=== PATIENT | female | born 1995 | race Caucasian/White ===

== ENCOUNTER 2018-01-01 12:30 | Inpatient (IN) | payer SELFPAY ==
[2018-01-01 12:52] VITALS: BMI 33.8
[2018-01-01] MEDS: Lactated Ringers 1,000 ML 50 ML IV ×2 (13:15→18:01)
[2018-01-01 13:39] LABS: Hematocrit 36.7 % (37-47); Hemoglobin 12.2 g/dl (12.0-15.0); Mean Corp Hgb Conc 33.2 g/gl (32-36); Mean Corpuscular Hgb 29.9 pg (27.0-32.0); Mean Platelet Vol. 10.6 fl (6.2-12.0); Platelet Count 193 K/mm3 (150-450); RBC Distribution Width CV 12.8 % (11.6-14.6); RBC Distribution Width SD 41.6 fl (35.1-43.9); Red Blood Count 4.08 M/mm3 (4.2-5.4); Scan Indicated on CBC? Y/N NO; White Blood Count 12.1 K/mm3 (4.4-11.0)
[2018-01-01] MEDS: Oxytocin 30 units/NS 500 ml 30 UNITS/500 ML IV.SOLN IV (13:50)
--- NOTE | 2018-01-01 17:14 | PCM.HP.OB ---
- Problem List (1) SROM (spontaneous rupture of membranes) Status: Acute History Date of Admission: 01/01/18 Final CARMEN: 01/12/18 Final CARMEN Source: US >20 weeks Gestational age: 38 Weeks and 3 Days History of this : This is a 22 year-old, , at 38 weeks gestational age who presented to the office with SROM for clear fluid at home. +Irregular ctx's. No VB. Good FM. has been uncomplicated. Late to care with 20 wk dating US. Allergies No Known Allergies Allergy (Verified 01/01/18 12:50) Home Medications: Home Medications Vits [Prenatabs FA] 1 tablet PO DAILY 01/01/18 Smoking Status: Never smoker Alcohol: None Number of Fetus(es): 1 Heart Tracin/mod mario alberto/+accels/no decels. Category 1 TOCO Analysis: Ctx q 4-5 min History Past Pregnancies: Past Pregnancies Delivery Date Name GA/Weeks Outcome Route Weight Gender Labor Length Anesthesia Delivery Location Provider FOB Labs: GBS pos, 1 hr GTT 113, Hep B neg, RI, Rh pos, HIV NR, Syphilis NR Expected Infant Delivery Method: Spontaneous Vaginal Review of Systems Gynecological: Reports: - - +SROM for clear fluid. No vb, regular ctx's. Good FM Physical Exam General: Alert, Oriented x3 HEENT: Atraumatic Lungs: - - No increased resp effort Abdomen: Soft, Non Tender, Gravid Extremities:: No edema Neurological: Neuro grossly intact FAMILY EDUCATOR: Normal external genitalia Estimated gestational size: Appropriate for gestational size Presentation: Cephalic Cervix Dilation (cm): 1 Station: -2 Effacement (%): 50 Assessment/Plan All Active Problems SROM (spontaneous rupture of membranes) (Acute) This is a 22 year-old, G1, P0, at 38 weeks gestational age who is admitted with SROM for clear fluid. - Cvx 1/t/h, vertex - Routine intrapartum care - Epidural prn - PCN for GBS positive - Start pitocin - Hx significant for late care
[2018-01-02] MEDS: Lactated Ringers 1,000 ML 50 ML IV ×3 (01:09→10:10)
--- NOTE | 2018-01-02 07:16 | PCM.PN.BLA ---
Progress Note At bedside to check pt. S/p epidural. Feeling more comfortable. Cvx now 6/80/-1. FHT 145/mod mario alberto/+accels/+occasional variable and early decels. Continue pit and PCN.
--- NOTE | 2018-01-02 08:36 | PN_ITS ---
Progress Note At bedside to check patient. Cvx 9/90/-1, anterior lip and some cervix on pt's left side. FHT 145/mod mario alberto/no accels/+early decels. [place] q 3-4 min. Continue with position changes, pit and PCN at this time.
--- NOTE | 2018-01-02 10:51 | PCM.PN.OB ---
Patient Problems: Active and Suspected Problems SROM (spontaneous rupture of membranes) (Acute) Subjective: Doing well, laying comfortable in bed with epidural. Late heart decelerations to 90's, pitocin off and positional changes. Pushed for 40 minutes and then stopped due to heart decelerations. Objective: FHT 120s, minimal variability, accels, early decel. Previous episodic late decelerations, recovered TOCO: irregular contractions, mild to palpation, pitocin off Cervix: Complete/0 station/ROP - Physical Exam Weight: 190 lb 14.725 oz Body Mass Index (BMI) 33.8 Intake and Output for Last 24 Hours 12/31/17 01/01/18 01/02/18 23:59 23:59 23:59 Intake Total 1598 / 1598 2850 / 2850 Output Total 1250 / 1250 1050 / 1050 Balance 348 / 348 1800 / 1800 Laboratory Tests Past 24 Hrs 01/01/18 01/01/18 13:15 13:15 WBC 12.1 H RBC 4.08 L Hgb 12.2 Hct 36.7 L MCV 90.0 MCH 29.9 MCHC 33.2 RDW 12.8 RDW Differential 41.6 Plt Count 193 MPV 10.6 Blood Type A POSITIVE Antibody Screen NEGATIVE Medical Necessity - Tobacco Use Smoking Status: Never smoker Assessment/Plan All Active Problems SROM (spontaneous rupture of membranes) (Acute) A:Active Labor, second stage Category 2 P: 1) Complete, ROP. Positional changes as tolerated. 2) Reviewed plan of care with . Will labor down. No pitocin for 40 minutes, will restart at 2mu's. 3) Epidural decreased by 1/2 by anesthesia. 4) Labor down at this time until contractions become regular then will begin pushing efforts again.
--- NOTE | 2018-01-02 12:35 | PCM.PN.OB ---
Patient Problems: Active and Suspected Problems SROM (spontaneous rupture of membranes) (Acute) Subjective: Sitting up in bed, feeling more pressure, continuous in back. Nauseated and emesis x1 Objective: FHT 120, moderate variability, accels. Variable decel with positional change. Category 2 TOCO:q3-5 minutes, moderate to palpation Pitocin at 8 mu's Cervix: complete/0 station, unable to determine position, vertex. - Physical Exam Weight: 190 lb 14.725 oz Body Mass Index (BMI) 33.8 Intake and Output for Last 24 Hours 12/31/17 01/01/18 01/02/18 23:59 23:59 23:59 Intake Total 1598 / 1598 2850 / 2850 Output Total 1250 / 1250 1050 / 1050 Balance 348 / 348 1800 / 1800 Laboratory Tests Past 24 Hrs 01/01/18 01/01/18 13:15 13:15 WBC 12.1 H RBC 4.08 L Hgb 12.2 Hct 36.7 L MCV 90.0 MCH 29.9 MCHC 33.2 RDW 12.8 RDW Differential 41.6 Plt Count 193 MPV 10.6 Blood Type A POSITIVE Antibody Screen NEGATIVE Medical Necessity - Tobacco Use Smoking Status: Never smoker Assessment/Plan All Active Problems SROM (spontaneous rupture of membranes) (Acute) A:Active Labor Category 2 P: 1) on unit, reviewed plan of care and waiting for more frequent contractions to start pushing efforts, agrees with plan. 2) Continue with active management at this time.
--- NOTE | 2018-01-02 13:28 | PCM.PN.OB ---
Patient Problems: Active and Suspected Problems SROM (spontaneous rupture of membranes) (Acute) Subjective: Epidural effective, feeling more pressure. Sitting up in bed, nausea resolved. Objective: FHT 120, moderate variability, accels, one late deceleration TOCO [id number], strong, Pitocin at 10mu's Cervix complete +1 to +2 station - Physical Exam Weight: 190 lb 14.725 oz Body Mass Index (BMI) 33.8 Intake and Output for Last 24 Hours 12/31/17 01/01/18 01/02/18 23:59 23:59 23:59 Intake Total 1598 / 1598 2850 / 2850 Output Total 1250 / 1250 1050 / 1050 Balance 348 / 348 1800 / 1800 Laboratory Tests Past 24 Hrs 01/01/18 01/01/18 13:15 13:15 WBC 12.1 H RBC 4.08 L Hgb 12.2 Hct 36.7 L MCV 90.0 MCH 29.9 MCHC 33.2 RDW 12.8 RDW Differential 41.6 Plt Count 193 MPV 10.6 Blood Type A POSITIVE Antibody Screen NEGATIVE Medical Necessity - Tobacco Use Smoking Status: Never smoker Assessment/Plan All Active Problems SROM (spontaneous rupture of membranes) (Acute) A:Active labor, progressing Category 2 heart tracing P: 1) Will begin pushing efforts . notified of patient status and plan.
--- NOTE | 2018-01-02 13:31 | PN.OBGYN_ITS ---
Patient Problems: Active and Suspected Problems SROM (spontaneous rupture of membranes) (Acute) Subjective: Epidural effective, feeling more pressure. Sitting up in bed, nausea resolved. Objective: FHT 120, moderate variability, accels, one late deceleration TOCO [id number], strong, Pitocin at 10mu's Cervix complete +1 to +2 station - Physical Exam Weight: 190 lb 14.725 oz Body Mass Index (BMI) 33.8 Intake and Output for Last 24 Hours 12/31/17 01/01/18 01/02/18 23:59 23:59 23:59 Intake Total 1598 / 1598 2850 / 2850 Output Total 1250 / 1250 1050 / 1050 Balance 348 / 348 1800 / 1800 Laboratory Tests Past 24 Hrs 01/01/18 01/01/18 13:15 13:15 WBC 12.1 H RBC 4.08 L Hgb 12.2 Hct 36.7 L MCV 90.0 MCH 29.9 MCHC 33.2 RDW 12.8 RDW Differential 41.6 Plt Count 193 MPV 10.6 Blood Type A POSITIVE Antibody Screen NEGATIVE Medical Necessity - Tobacco Use Smoking Status: Never smoker Assessment/Plan All Active Problems SROM (spontaneous rupture of membranes) (Acute) A:Active labor, progressing Category 2 heart tracing P: 1) Will begin pushing efforts . notified of patient status and plan.
--- NOTE | 2018-01-02 14:24 | PCM.PN.OB ---
Patient Problems: Active and Suspected Problems SROM (spontaneous rupture of membranes) (Acute) Subjective: Pushing with tug of war, minimal decent. Epidural effective Objective: FHT 130, minimal variabilityno accel, category 2. Prolonged decel in 90's. TOCO: every 4-5 minutes, strong Cervix: Complete, caput +2 with pushing, labial separation, minimal descent but slow progress. - Physical Exam Weight: 190 lb 14.725 oz Body Mass Index (BMI) 33.8 Intake and Output for Last 24 Hours 12/31/17 01/01/18 01/02/18 23:59 23:59 23:59 Intake Total 1598 / 1598 2850 / 2850 Output Total 1250 / 1250 1050 / 1050 Balance 348 / 348 1800 / 1800 Medical Necessity - Tobacco Use Smoking Status: Never smoker Assessment/Plan All Active Problems SROM (spontaneous rupture of membranes) (Acute) A: Active labor, second stage Category 2 FHT P: 1) notified of FHT and asked to come to L&D for evaluation. 2) Placed on side, pitocin off, O2 on via facemask.
[2018-01-02] MEDS: Oxytocin 30 units/NS 500 ml 30 UNITS/500 ML IV.SOLN 334 UNITS IV (15:48)
[2018-01-02] MEDS: Oxytocin 30 units/NS 500 ml 30 UNITS/500 ML IV.SOLN 167 UNITS IV (16:20)
--- NOTE | 2018-01-02 16:25 | OP.PCM_ITS ---
- Problem List (1) Vaginal delivery Status: Acute (2) Shoulder dystocia, delivered Status: Acute (3) Second degree perineal laceration Status: Acute Vaginal Delivery Maternal Presentation: Spontaneous Rupture of Membranes Method of Induction: Pitocin Medical Reason for Induction: Premature Rupture of Membranes Amniotic Membrane Rupture Type: Spontaneous Amniotic Fluid Description: Clear Final CARMEN: 01/12/18 Gestational age: 38 Weeks and 4 Days Date of Procedure: 01/02/18 Pre-Operative Diagnosis: PROM Post-Operative Diagnosis: Vaginal Delivery Surgery/ Procedure Performed: Spontaneous Vaginal Delivery Type of Anesthesia: Epidural Description of Procedure: After laboring down and awaiting for closer contraction frequency, attempted pushing efforts. Maternal efforts strong and progressing. called to unit for review of tracing and stayed during pushing efforts. Recovery of heart tones and good pushing efforts with progress. of viable male infant over 2nd degree perineal laceration and right labial laceration. APGARS 6 and 8 with weight pending. Head delivered with turtle sign noted and shoulders not forthcoming. Luh then suprapubic pressure applied. Compliance And Control Analyst called to room. Cord around neck, unable to reduce. Retrieval of posterior arm with posterior hand and elbow forth coming. Maternal pushing efforts poor. Attempting to retrieve rest of posterior arm and assist in delivery and instructed mother to push. stepped in to assist and infant forthcoming and delivered. Cord doubly clamped and taken by nursing staff to warmer. Infant stimulated, no further resuscitative measures, attended by nursing staff and . Cord gases obtained. Pitocin for active 3rd stage management. Infant placed skin to skin on maternal abdomen. Placenta delivered with maternal effort, intact, 3 vessel cord via mi, marginal cord insertion. Perineum inspected and revealed 2nd degree perineal laceration repaired under epidural analgesia with 3.0 vicryl and right labial laceration repaired with 3.0 vicryl. Well approximated and hemostasis achieved. Vaginal exam and clots removed. Fundus firm, EBL 300ml. Planning to breastfeed. Mom and baby stable, family bonding well. present for delivery. Presentation: Vertex Placental Delivery Description: Spontaneous Placenta Disposition: [facility] Cord Vessel Description: 3 Vessels Nuchal Cord Compression: Without compression Cord Gases drawn per routine: ABG, VBG Cord Entanglement: Around neck x 1, loose Estimated Blood Loss: 300 ml Infant A gender: Male (1 minute): 6 (5 minute): 8 Episiotomy Description: None Laceration: Perineal Extension/lac, 2nd degree Medications given after delivery: IV Pitocin
[2018-01-02] MEDS: Ibuprofen 600 MG Tablet PO (17:43)
[2018-01-02 20:30] VITALS: BP 117/73; PULSE 92; RESP 18; TEMP 36.5
[2018-01-03] VITALS: BP 115/76; PULSE 103; RESP 16; TEMP 36.8
[2018-01-03] MEDS: Ibuprofen 600 MG Tablet PO (03:31)
[2018-01-03 03:35] VITALS: BP 128/86; PULSE 98; RESP 18; TEMP 36.7
[2018-01-03 08:00] VITALS: BP 124/73; PULSE 87; RESP 16; TEMP 36.6; O2SAT 97
[2018-01-03] MEDS: Acetaminophen 500 MG Tablet 1000 MG PO (08:51)
--- NOTE | 2018-01-03 12:13 | PCM.PN.OB ---
Patient Problems: Active and Suspected Problems SROM (spontaneous rupture of membranes) (Acute) Vaginal delivery (Acute) Shoulder dystocia, delivered (Acute) Second degree perineal laceration (Acute) Subjective: Doing well per patient and nursing staff. Voiding and passing flatus. Denies any increased pain, vaginal bleeding or clots, chest pain, SOB or leg pain. Tylenol and Motrin effective for pain. , every 2-3 hrs. Planning D/C home tomorrow. Objective: Rubella Immune A positive GBS positive-treated during labor - Physical Exam General: Alert, Oriented x3 HEENT: Atraumatic, Normocephalic Lungs: Clear to auscultation, No rhonchi, No wheeze Cardiovascular: Regular rate, Regular Rhythm, No murmurs Abdomen: Bowel Sounds Present, Soft, - - Fundus firm 2 below U Extremities: No edema, - - Fede's negative Psych/Mental Status: Normal Affect, Appropriate Vital Signs Temp Pulse Resp BP Pulse Ox 97.8 F 87 16 124/73 H 97 01/03/18 08:00 01/03/18 08:00 01/03/18 08:00 01/03/18 08:00 01/03/18 08:00 Oxygen Delivery Method Room Air Weight: 190 lb 14.725 oz Body Mass Index (BMI) 33.8 Intake and Output for Last 24 Hours 01/01/18 01/02/18 01/03/18 23:59 23:59 23:59 Intake Total 1598 / 1598 4750 / 4750 Output Total 1250 / 1250 3300 / 3300 600 / 600 Balance 348 / 348 1450 / 1450 -600 / -600 Medical Necessity - Tobacco Use Smoking Status: Never smoker Assessment/Plan All Active Problems SROM (spontaneous rupture of membranes) (Acute) Vaginal delivery (Acute) Shoulder dystocia, delivered (Acute) Second degree perineal laceration (Acute) A:PPD #1 Should dystocia P: 1) Routine PP care 2) instructions given 3) Plan D/C home tomorrow 4) LARC declined
--- NOTE | 2018-01-03 12:20 | DCINST_ITS ---
Discharge Diet: No Restrictions Discharge Activity: Return to Normal Activity May resume sexual activity in: 4-6 weeks Weight Bearing Status: Weight bearing as tolerated Call your doctor if your incision/area has: Continuous Slow Oozing, Sudden Increased Bleeding, Increased Pain/ Swelling, Increased Redness, Foul Smelling Discharge Call your doctor if you observe: Fever of 101 or Higher, Numbness or Tingling, Inability to urinate, Inability to have a bowel movement, Using more than one pad per hour, Shortness of breath, Chest pain, Increased palpitations (irregular heartbeat), Calf discomfort Additional Instructions: If you experience any of the following, contact your healthcare provider. * Bleeding that soaks a pad every hour for 2 hours * Fever 100.4 or higher * Unrelieved incision or abdominal pain * Swelling, redness, discharge or bleeding from your incision or episiotomy site * Your incision begins to separate * Problems urinating (including inability to urinate or burning while urinating). * Visual changes * Severe headache * Flu-like symptoms * Pain or redness in one of both of your breasts * Pain, warmth, tenderness or swelling in your legs, especially the calf area * Frequent nausea and vomiting * Symptoms of depression or anxiety If you experience any of the following, call 911 or go to the nearest Emergency Room. * Chest pain * Problems breathing * Seizure activity * Partial or complete paralysis of a body part, slurred speech, weakness or drooping of the face, or a sudden inability to walk or hold your balance Allergies/Adverse Reactions: Allergies No Known Allergies Allergy (Verified 01/01/18 12:50) Medications to take at Discharge Vits [Prenatabs FA] 1 tablet PO DAILY 01/01/18 Please Follow Up With: Skye Key CNM When: Call to make an appointment with your provided in 2 weeks for follow up and in 6 weeks for visit. If you had elevated Blood Pressure or 4th degree laceration you will need to be seen in 2 weeks. Primary Care Physician: Care Physician,No Primary [Primary Care Provider] - Test Results: Test results from this visit will be discussed in further detail at your follow- up appointment, if applicable.
[2018-01-03 14:00] VITALS: BP 129/82; PULSE 97; RESP 16; TEMP 36.6; O2SAT 97
[2018-01-03 20:38] VITALS: BP 120/82; PULSE 90; RESP 18; TEMP 36.3; O2SAT 99
[2018-01-04 01:31] VITALS: BP 126/81; PULSE 76; RESP 18; TEMP 36.5; O2SAT 99
[2018-01-04 08:00] VITALS: BP 121/83; PULSE 79; RESP 18; TEMP 36.3
--- NOTE | 2018-01-04 08:57 | PN.OBGYN_ITS ---
Patient Problems: Active and Suspected Problems SROM (spontaneous rupture of membranes) (Acute) Vaginal delivery (Acute) Shoulder dystocia, delivered (Acute) Second degree perineal laceration (Acute) Subjective: Patient sitting up in rocking chair bonding with baby; nearby. Patient denies any issues at this time. Patient and desire to be discharged to home today. Objective: Nipples without cracks and blisters, no erythema noted, no ecchymoses Abdomen NT x 4 quadrants, FF midline 2FB below umbilicus +2/4 reflexes in LE, no edema, no calf tenderness noted bilaterally scant rubra lochia, perineum well-approximated - Physical Exam General: Alert, Oriented x3, Cooperative HEENT: Atraumatic, Normocephalic Neck: Supple Lungs: Normal air movement Cardiovascular: Regular rate, No murmurs Abdomen: Soft, Non Tender Extremities: No edema, Capillary Refill Less than 3 Seconds Skin: No rashes, No breakdown Musculoskeletal: No Tenderness to Palpation of Joints or Extremities Neurological: Cranial nerves II-XII grossly intact Psych/Mental Status: Normal Affect, Appropriate Vital Signs Temp Pulse Resp BP Pulse Ox 97.7 F L 76 18 126/81 H 99 01/04/18 01:31 01/04/18 01:31 01/04/18 01:31 01/04/18 01:31 01/04/18 01:31 Oxygen Delivery Method Room Air Weight: 190 lb 14.725 oz Body Mass Index (BMI) 33.8 Intake and Output for Last 24 Hours 01/02/18 01/03/18 01/04/18 23:59 23:59 23:59 Intake Total 4750 / 4750 Output Total 3300 / 3300 600 / 600 Balance 1450 / 1450 -600 / -600 Medical Necessity - Tobacco Use Smoking Status: Never smoker Assessment/Plan All Active Problems SROM (spontaneous rupture of membranes) (Acute) Vaginal delivery (Acute) Shoulder dystocia, delivered (Acute) Second degree perineal laceration (Acute) 22 y/o , s/p complicated by shoulder dystocia and 2nd degree perineal laceration, PPD #2, Uncomplicated PP Course P: 1) Patient to be discharged to home today 2) Anticipatory health teaching done 3) RTC in 2 and 6 weeks PP to [facility] Areli JONES
[2018-01-04 12:30] VITALS: BP 122/88; PULSE 87; RESP 16; TEMP 36.4
== END 2018-01-04 13:30 | disposition home or self-care (01) | DRG 807 ==
PROVIDERS: Admitting Provider Obstetrics & Gynecology; Referring Provider Obstetrics & Gynecology; Visit Provider Obstetrics & Gynecology
DX: O42.92 Full-term premature rupture of membranes, unspecified as to length of time between rupture and onset of labor (principal); Z37.0 Single live birth; O99.824 Streptococcus B carrier state complicating childbirth; Z3A.38 38 weeks gestation of pregnancy; O70.1 Second degree perineal laceration during delivery; O69.1XX0 Labor and delivery complicated by cord around neck, with compression, not applicable or unspecified; O66.0 Obstructed labor due to shoulder dystocia; O76 Abnormality in fetal heart rate and rhythm complicating labor and delivery
CPT/HCPCS: 59025; 59050; 85027; 86850; 86900; 99218; J7120; G0378